=== PATIENT | male | born 1980 | race African-American/Black ===

== ENCOUNTER 2023-02-22 11:07 | Emergency (ER) | payer MEDICAID ==
[~2023-02-22] VITALS: Ht 172.7 cm; Wt 82.0 kg
[2023-02-22] MEDS ORDERED: ACETAMINOPHEN 325MG TABLET PO ONE (14:45)
[2023-02-22] MEDS ORDERED: ACETAMINOPHEN 325MG TABLET PO NR (17:00)
[2023-02-22 19:00] VITALS: BP 129/64
[2023-02-22] MEDS ORDERED: IBUP-2028 MT (19:37)
== END 2023-02-22 20:22 | disposition home or self-care (01) ==
LOC: ER 11:07
DX: S02.2XXA Fracture of nasal bones, initial encounter for closed fracture (principal); S02.832A Fracture of medial orbital wall, left side, initial encounter for closed fracture; E11.9 Type 2 diabetes mellitus without complications; Y08.89XA Assault by other specified means, initial encounter; Y93.89 Activity, other specified; Y92.89 Other specified places as the place of occurrence of the external cause; Y99.8 Other external cause status
CPT/HCPCS: 70486; 73090; 99284